=== PATIENT | male | born 1985 | race Caucasian/White ===

== ENCOUNTER 2016-08-20 09:53 | Emergency (ER) | payer OTHER, MEDICAID ==
[~2016-08-20] VITALS: Ht 180.3 cm; Wt 104.3 kg
[2016-08-20 10:26] LABS: Basophils # (auto) 0 uL; Basophils % (auto) 0.5 % (0.0-2.0); Eosinophils # (auto) 0.3 uL; Eosinophils % (auto) 4.3 % (0.0-7.0); Hematocrit 46.4 % (41.0-53.0); Hemoglobin 15.8 g/dL (13.5-17.5); Lymphocytes # (auto) 1.3 uL; Lymphocytes % (auto) 19.9 % (10.0-50.0); Mean Corpuscular Hemoglobin 29.8 pg (28.0-32.0); Mean Corpuscular Volume 87.7 fL (80.0-100.0); Mean Platelet Volume 6.8 fL (7.4-10.4); Monocytes # (auto) 0.4 uL; Monocytes % (auto) 5.6 % (0.0-12.0); Neutrophils # (auto) 4.6 uL; Neutrophils % (auto) 69.7 % (37.0-80.0); Platelet Count (auto) 421 10^3/uL (140-450); Red Cell Distribution Width 12.6 % (11.6-16.0); White Blood Cell 6.5 10^3/uL (4.4-10.8)
[2016-08-20 10:45] LABS: Albumin 3.8 g/dL (3.4-5.0); BUN/Creatinine Ratio 14.2; Bilirubin, Total 0.6 mg/dL (0.2-1.0); Calcium 8.9 mg/dL (8.5-10.1); Potassium 3.7 mmol/L (3.5-5.1); Total Protein 7.2 g/dL (6.4-8.2)
[2016-08-20 16:25] LABS: Urine RBC None Seen /hpf (0 - 3)
[2016-08-20 16:26] VITALS: BP 126/67
[2016-08-20 16:37] LABS: Urine Bilirubin Negative (Negative); Urine Blood Negative /uL (Negative); Urine Color Yellow (Yellow); Urine Glucose Normal (Normal); Urine Ketone Negative (Negative); Urine Nitrite Negative (Negative); Urine Urobilinogen Normal (Negative); Urine pH 5.5 (5.0-8.0)
== END 2016-08-20 17:08 | disposition home or self-care (01) ==
LOC: ER 09:53
DX: K63.89 Other specified diseases of intestine (principal); K76.0 Fatty (change of) liver, not elsewhere classified; R73.9 Hyperglycemia, unspecified; K42.9 Umbilical hernia without obstruction or gangrene; K21.9 Gastro-esophageal reflux disease without esophagitis; I10 Essential (primary) hypertension; Z88.6 Allergy status to analgesic agent; Z88.8 Allergy status to other drugs, medicaments and biological substances
CPT/HCPCS: 36415; 74176; 80053; 81001; 85025; 85049

== ENCOUNTER 2017-01-27 05:16 | Emergency (ER) | payer OTHER, MEDICAID ==
[~2017-01-27] VITALS: Ht 180.3 cm; Wt 104.3 kg
[2017-01-27 05:33] VITALS: BP 146/101
== END 2017-01-27 09:10 | disposition home or self-care (01) ==
LOC: ER 05:16
DX: K02.9 Dental caries, unspecified (principal); K21.9 Gastro-esophageal reflux disease without esophagitis; I10 Essential (primary) hypertension; Z88.6 Allergy status to analgesic agent

== ENCOUNTER → 2021-02-06 | Emergency (ER) | payer OTHER | END | disposition left against medical advice (07) | LOC: ER 22:50 | DX: N50.819 Testicular pain, unspecified (principal); Z53.21 Procedure and treatment not carried out due to patient leaving prior to being seen by health care provider ==

== ENCOUNTER 2022-01-24 17:17 | Emergency (ER) | payer OTHER ==
[~2022-01-24] VITALS: Ht 180.3 cm; Wt 99.3 kg
[2022-01-24] MEDS ORDERED: HYDROcodone-ACET 5/325MG TAB PO ONE (20:45)
[2022-01-24] MEDS ORDERED: ACETAMINOPHEN 325 MG TAB PO ONE (21:15)
[2022-01-24] MEDS ORDERED: BACITRACIN TOP OINT 1 UD PKG TOP ONE (21:30)
[2022-01-24] MEDS ORDERED: CEPH500C PO (22:04)
[2022-01-24] MEDS ORDERED: IBUP600T28 PO (22:04)
[2022-01-24 22:23] VITALS: BP 117/87
== END 2022-01-24 22:55 | disposition home or self-care (01) ==
LOC: ER 17:17
DX: S61.412A Laceration without foreign body of left hand, initial encounter (principal); I10 Essential (primary) hypertension; Z90.89 Acquired absence of other organs; Z88.1 Allergy status to other antibiotic agents; Z88.8 Allergy status to other drugs, medicaments and biological substances; W32.0XXA Accidental handgun discharge, initial encounter; Y93.89 Activity, other specified; Y92.89 Other specified places as the place of occurrence of the external cause; Y99.8 Other external cause status
CPT/HCPCS: 12002; 12042; 73130